=== PATIENT | female | born 1985 | race Caucasian/White ===

== ENCOUNTER 2021-08-11 18:31 | Emergency (ER) | payer OTHER ==
[~2021-08-11] VITALS: Ht 157.5 cm; Wt 97.5 kg
[2021-08-11 19:44] LABS: Basophils # (auto) 0.1 10 ^3/uL (0-0.2); Basophils % (auto) 1.3 % (0.0-2.0); Eosinophils # (auto) 0.4 10 ^3/uL (0-0.8); Eosinophils % (auto) 3.3 % (0.0-7.0); Hematocrit 41.4 % (36.0-46.0); Hemoglobin 13.6 g/dL (12.2-16.2); Lymphocytes % (auto) 26.8 % (10.0-50.0); Mean Corpuscular Hemoglobin 28.7 pg (28.0-32.0); Mean Corpuscular Hgb Conc. 32.8 g/dL (32.0-36.0); Mean Corpuscular Volume 87.5 fL (80.0-100.0); Monocytes # (auto) 0.7 10 ^3/uL (0-1.3); Monocytes % (auto) 6.6 % (0.0-12.0); Nucleated Red Blood Cells % 0.1 %; Red Blood Cells 4.74 10^6/uL (4.0-5.20); Red Cell Distribution Width 13.8 % (11.8-14.3); White Blood Cell 11.3 10^3/uL (4.4-10.8)
[2021-08-11 20:13] LABS: Albumin 3.8 g/dL (3.4-5.0); BUN/Creatinine Ratio 20.3; Calcium 9.3 mg/dL (8.5-10.1)
[2021-08-11 20:15] LABS: Bilirubin, Total 0.3 mg/dL (0.2-1.0); Total Protein 7.7 g/dL (6.4-8.2)
[2021-08-11] MEDS ORDERED: fentaNYL CITRATE 100 MCG/2 ML VL IV ONE (20:15)
[2021-08-11 20:34] LABS: INR 0.95 (0.9-1.15); Partial Thromboplastin Time 28.8 sec (23.6-33.0)
[2021-08-11] MEDS ORDERED: HYDROcodone-ACET 5/325MG TAB PO ONE (22:30)
[2021-08-11 23:00] VITALS: BP 129/81
== END 2021-08-12 01:09 | disposition home or self-care (01) ==
LOC: ER 18:33
DX: N93.9 Abnormal uterine and vaginal bleeding, unspecified (principal); K59.00 Constipation, unspecified; D25.9 Leiomyoma of uterus, unspecified; N88.8 Other specified noninflammatory disorders of cervix uteri
CPT/HCPCS: 36415; 74176; 76830; 76856; 80053; 84702; 85025; 85610; 85730